=== PATIENT | male | born 1985 | race Caucasian/White ===

== ENCOUNTER 2023-08-02 10:22 | Outpatient (OUT) | payer MEDICARE, MEDICAID, SELFPAY ==
--- NOTE | 2023-08-02 10:46 | XR_ITS ---
The [address] [address] Patient Name: SUSANA SALCIDO MRN: [id number] date: 1985 Sex: M Assigned Patient Location: LAB Current Patient Location: LAB Accession/Order Number: [id number] Exam Date: 08/02/2023 10:56 Report Date: 08/02/2023 11:20 At the request of: EMETERIO LOREDO Procedure: XR chest 2V EXAMINATION: XR chest 2V 08/02/2023 8:19 AM PDT, [id number]. HISTORY: Acute Diastolic Congestive Heart Failure I50.31 TECHNIQUE: 2 views of the chest were acquired. COMPARISONS: Chest x-ray 04/10/2023. FINDINGS: Lines/tubes/other: None. Heart and mediastinum: Stable mild enlargement of the cardiac silhouette. Bones: No acute osseous abnormality. Lungs: Bibasilar streaky opacification, similar. No pulmonary edema. Pleura: No pleural effusion or pneumothorax. Other: No pneumoperitoneum. XR/XR chest 2V IMPRESSION: Stable bibasilar streaky opacification likely representing atelectasis and/or scarring. No pulmonary edema. Electronically authenticated by: RADHA KIDD Date: 08/02/2023 11:20
[2023-08-02 10:51] LABS: Basophils Absolute Auto 0.1 10^3/uL (0.0-0.1); Basophils Percent Auto 0.9 % (0.2-2.0); Eosinophils Absolute Auto 0.1 10^3/uL (0.0-0.7); Eosinophils Percent Auto 1.2 % (0.9-7.0); Hematocrit 36.5 % (42.0-54.0); Immature Granulocytes Abs Auto 0.14 10^3/uL (0.00-0.03); Immature Granulocytes Pct Auto 1.3 % (0.0-0.5); Lymphocytes Absolute Auto 1.7 10^3/uL (1.2-3.8); Mean Corpuscular HGB Conc 32.9 g/dL (29.9-35.2); Mean Corpuscular Hemoglobin 30.8 pg (25.9-34.0); Mean Corpuscular Volume 93.6 fL (80.0-94.0); Mean Platelet Volume 11.8 fL (9.5-13.5); Neutrophils Absolute Auto 7.8 10^3/uL (1.4-6.5); Neutrophils Percent Auto 71.6 % (43.0-75.0); Platelet Count 308 10^3/uL (150-450); Red Cell Distribution Width 16.7 % (11.0-15.0); White Blood Count 10.8 10^3/uL (4.0-11.0)
[2023-08-02 11:05] LABS: Anion Gap 9.1; BUN Creatinine Ratio 27.2; Calcium 9.7 mg/dL (8.5-10.1); Carbon Dioxide 36.2 mmol/L (21.0-32.0); Chloride 96 mmol/L (98-107); Estimated GFR (African America 28 (>=60); Estimated GFR (Non-African Ame 23 (>=60); Glucose 323 mg/dL (74-106); Potassium 3.3 mmol/L (3.5-5.1); Sodium 138 mmol/L (136-145)
== END 2023-08-02 10:23 | disposition home or self-care (01) ==
LOC: LAB 10:25
PROVIDERS: PCP Nurse Practitioner; Visit Provider Nurse Practitioner
DX: I50.31 Acute diastolic (congestive) heart failure (principal); I25.10 Atherosclerotic heart disease of native coronary artery without angina pectoris
CPT/HCPCS: 36415; 71046; 80048; 83880; 85025

== ENCOUNTER 2024-07-31 12:07 | Outpatient (OUT) | payer MEDICARE, MEDICAID, SELFPAY ==
--- NOTE | 2024-07-31 12:58 | XR_ITS ---
The [address] [address] Patient Name: SUSANA SALCIDO MRN: [id number] date: 1985 Sex: M Assigned Patient Location: [facility] Current Patient Location: [facility] Accession/Order Number: [id number] Exam Date: 07/31/2024 13:20 Report Date: 07/31/2024 14:18 At the request of: NARDA QUEEN Procedure: XR chest 2V EXAM: XR chest 2V HISTORY: Preop exam COMPARISON: Chest radiograph dated 08/02/2023. TECHNIQUE: PA and lateral views of the chest performed. FINDINGS: Left jugular central venous catheter with the distal tip extending into the right atrium. The trachea is midline. The heart size is within normal limits and most prominent. The cardiomediastinal silhouette and hilar shadows are within normal limits. There are a few small foci of linear atelectasis at the lung bases and stable mild blunting of the right lateral costophrenic angle. There is no consolidation, large pleural effusion or pulmonary vascular congestion. There is no pneumothorax. There is no acute osseous abnormality. XR/XR chest 2V IMPRESSION: There are a few small foci of linear atelectasis at the lung bases and stable mild blunting of the right lateral costophrenic angle. Left jugular central venous Mediport with the distal tip extending into the right atrium. Electronically authenticated by: ZAC BALES Date: 07/31/2024 14:18
--- NOTE | 2024-07-31 12:58 | ECG_ITS ---
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
[2024-07-31 13:46] LABS: Basophils Absolute Auto 0.1 10^3/uL (0.0-0.1); Basophils Percent Auto 0.5 % (0.2-2.0); Eosinophils Absolute Auto 0.1 10^3/uL (0.0-0.7); Eosinophils Percent Auto 0.4 % (0.9-7.0); Hematocrit 37.5 % (42.0-54.0); Hemoglobin 12.5 g/dL (14.0-18.0); Immature Granulocytes Abs Auto 0.08 10^3/uL (0.00-0.03); Immature Granulocytes Pct Auto 0.6 % (0.0-0.5); Lymphocytes Absolute Auto 2.6 10^3/uL (1.2-3.8); Mean Corpuscular HGB Conc 33.3 g/dL (29.9-35.2); Mean Corpuscular Hemoglobin 30.6 pg (25.9-34.0); Mean Corpuscular Volume 91.9 fL (80.0-94.0); Mean Platelet Volume 11.3 fL (9.5-13.5); Monocytes Absolute Auto 1.3 10^3/uL (0.3-0.8); Monocytes Percent Auto 9.6 % (1.7-12.0); Neutrophils Absolute Auto 9.7 10^3/uL (1.4-6.5); Neutrophils Percent Auto 69.9 % (43.0-75.0); Platelet Count 287 10^3/uL (150-450); Red Blood Count 4.08 10^6/uL (4.70-6.10); Red Cell Distribution Width 14.2 % (11.0-15.0); White Blood Count 13.9 10^3/uL (4.0-11.0)
[2024-07-31 13:56] LABS: INR 0.95; Partial Thromboplastin Time 27.7 sec (22.3-36.2); Prothrombin Time 10.1 sec (9.0-11.6)
[2024-07-31 14:52] LABS: Anion Gap 17.2; BUN Creatinine Ratio 10.7; Calcium 9.3 mg/dL (8.5-10.1); Carbon Dioxide 23.2 mmol/L (21.0-32.0); Chloride 93 mmol/L (98-107); Estimated GFR (African America 32 (>=60); Estimated GFR (Non-African Ame 26 (>=60); Glucose 427 mg/dL (74-106); Potassium 3.4 mmol/L (3.5-5.1); Sodium 130 mmol/L (136-145)
== END 2024-07-31 12:08 | disposition home or self-care (01) ==
LOC: PST 12:09
PROVIDERS: PCP Nurse Practitioner; Visit Provider Student in an Organized Health Care Education/Training Program
DX: Z01.810 Encounter for preprocedural cardiovascular examination (principal); Z01.812 Encounter for preprocedural laboratory examination; N18.6 End stage renal disease
CPT/HCPCS: 71046; 80048; 85025; 85610; 85730; 93005